=== PATIENT | female | born 2000 | race American Indian/Alaskan Native ===

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

== ENCOUNTER 2018-02-28 15:21 | Outpatient (CLI) | payer BC, MEDICAID ==
[2018-02-28 15:52] VITALS: BP 98/50
[2018-02-28] MEDS ORDERED: LACTATED RINGERS 500 ML IV ONE (16:07)
[2018-02-28 16:35] LABS: Bilirubin,Urine NEG (Negative); Blood,Urine NEG (Negative); Color,Urine Yellow (Yellow); Protein,Urine <15 mg/dL mg/dL (Negative); Urobilinogen,Urine < 2.0 mg/dL (<2.0)
== END 2018-02-28 17:09 | disposition home or self-care (01) ==
LOC: TRG 15:21
PROVIDERS: ATTEND Obstetrics & Gynecology
DX: O47.02 False labor before 37 completed weeks of gestation, second trimester (principal); Z3A.19 19 weeks gestation of pregnancy
CPT/HCPCS: 59025; 81001